=== PATIENT | male | born 1960 | race American Indian/Alaskan Native ===

== ENCOUNTER 2019-10-04 04:55 | Emergency (ER) | payer OTHER ==
[~2019-10-04] VITALS: Ht 182.9 cm; Wt 129.7 kg
[~2019-10-04 04:55] MED LIST: ALBU90OI INH; AMIT25; AMLO5 PO; ASPI81CH PO; ATOR40TA PO; AZIT250 PO; AZIT500 PO; CIPR500 PO; CYCL10 PO; FISH-FLAX-BORA1 EACH PO; HYDACE5 PO; HYDCHL25 PO; HYDGUAL120 PO; IBUP600 PO; LISI20 PO; LISI5 PO; MELO7.5 PO; NAPR500 PO; OLME20-12. PO; OMEP40CA12 PO; OXYACE5T PO; RXOXYACE PO; RXPROM25 PO; SPACER IH; Synthroid50 MCG; TRAM50 PO; TRAZ50 PO
[2019-10-04] MEDS ORDERED: LORCET PLUS 7.1 EACH (05:16)
[2019-10-04] MEDS ORDERED: OMEPRAZOLE DR 40 MG (05:17)
[2019-10-04] MEDS ORDERED: LISINOPRIL TAB 20M (05:17)
[2019-10-04] MEDS ORDERED: TRIAMTERENE-HCTZ 37. (05:17)
[2019-10-04] MEDS ORDERED: Norco 5-325 Ta1 EACH PO (06:12)
[2019-10-04] MEDS ORDERED: BENZ100A PO (06:12)
[2019-10-04] MEDS ORDERED: IBUP800 PO (06:12)
== END 2019-10-04 06:44 | disposition home or self-care (01) ==
LOC: ER 04:55
DX: S23.41XA Sprain of ribs, initial encounter (principal); I10 Essential (primary) hypertension; E03.9 Hypothyroidism, unspecified; E78.00 Pure hypercholesterolemia, unspecified; F17.200 Nicotine dependence, unspecified, uncomplicated; Z88.5 Allergy status to narcotic agent; Z79.899 Other long term (current) drug therapy; Z79.82 Long term (current) use of aspirin; X58.XXXA Exposure to other specified factors, initial encounter
CPT/HCPCS: 71101; 96374; 96375; 99283-25; J1885; J3010